=== PATIENT | male | born 1935 | race Caucasian/White ===

== ENCOUNTER 2021-11-01 19:17 | Emergency (ER) | payer OTHER ==
[2021-11-01] MEDS ORDERED: EPINEPHrine 1 MG/10 ML SYR IV ONE (19:18)
[2021-11-01] MEDS ORDERED: D50W 25 GM/50 ML SYRINGE IV ONE (19:18)
[2021-11-01] MEDS ORDERED: NA CHLORIDE 0.9% 1,000 ML ONE ×3 (19:42→23:00)
[2021-11-01 19:54] LABS: Urine Blood 3+ (Negative); Urine Glucose Negative (Negative); Urine Protein 2+ (Negative); Urine Specific Gravity >=1.030 (1.005-1.030); Urine pH 5.5 (5.0-7.0)
[2021-11-01] MEDS ORDERED: RSI MEDICATION KIT IV ONE (20:04)
[2021-11-01] MEDS ORDERED: WATER FOR INJ,STERILE 10 ML ONE (20:10)
[2021-11-01] MEDS ORDERED: VECURONIUM 10 MG/VIAL IV ONE (20:10)
[2021-11-01] MEDS ORDERED: MIDAZOLAM HCL 2 MG/2 ML INJ ONE (20:14)
[2021-11-01 20:19] LABS: Absolute Lymphocytes (CBC) 1.7 K/uL (0.7-4.9); Hematocrit 50.9 % (39.6-49.0); Lymphocytes % 10.9 % (15.3-44.8); MCV 87.4 fL (80-100); MPV 7.8 fL (7.6-11.3); RBC Red Blood Cell Count 5.83 M/uL (4.33-5.43)
[2021-11-01] MEDS ORDERED: NOREPINEPHRINE BITARTRATE/D5W 4 MG/250 ML BAG IV ONE (20:22)
[2021-11-01 20:34] LABS: Urine Bacteria <20 /HPF (<20); Urine Mucus 1+ /HPF (None Seen); Urine RBC <5 /HPF (None Seen)
[2021-11-01 20:38] LABS: Potassium 4.6 mmol/L (3.5-5.1)
[2021-11-01 20:47] LABS: NT PRO-BNP 8455 pg/mL (<450)
[2021-11-01 20:48] LABS: Creatine Phosphokinase 6422 U/L (39-308); Troponin High Sensitivity 1900.7 pg/mL (<58.9)
--- NOTE | 2021-11-01 21:06 | RAD REPORT ---
EXAM DESCRIPTION: RAD - Chest Single View - 11/01/2021 8:52 pm CLINICAL HISTORY: AMS Chest pain. COMPARISON: No comparisons FINDINGS: Portable technique limits examination quality. Tip of the endotracheal tube is at the level of the clavicular heads. Enteric tube descends into the stomach. Deming rounded masslike lesion is seen with right lower lung.Cardiac size is normal.
--- NOTE | 2021-11-01 21:07 | RAD REPORT ---
EXAM DESCRIPTION: US - Extremity Venous Uni Ltd - 11/01/2021 9:01 pm CLINICAL HISTORY: Pain Arm swelling and edema. COMPARISON: No comparisons FINDINGS: Left upper extremity venous system was interrogated with Doppler technique. Echogenic mate rial seen in the left brachial and basilic veins compatible with deep VT. IMPRESSION: Positive for left upper extremity DVT.
--- NOTE | 2021-11-01 21:08 | RAD REPORT ---
EXAM DESCRIPTION: RAD - Humerus Left - 11/01/2021 8:52 pm CLINICAL HISTORY: Pain COMPARISON: No comparisons FINDINGS: Mild AC joint and glenohumeral joint arthritic changes are present. No acute fracture or d islocation is seen.
--- NOTE | 2021-11-01 21:08 | RAD REPORT ---
EXAM DESCRIPTION: RAD - Shoulder Left 2 View - 11/01/2021 8:52 pm CLINICAL HISTORY: Pain COMPARISON: No comparisons FINDINGS: Mild AC joint and glenohumeral joint arthritic changes are present. No fracture or disloca tion seen. Incidentally noted is endotracheal intubation and enteric tube.
--- NOTE | 2021-11-01 21:57 | RAD REPORT ---
EXAM DESCRIPTION: CT - Head C Spine Cap Wo Con - 11/01/2021 9:37 pm CLINICAL HISTORY: Trauma, head and neck injury. Chest, abdomen and pelvis pain. AMS COMPARISON: No comparisons TECHNIQUE: CT head without contrast. CT cervical spine without contrast with coronal and sagittal reformatted images. CT chest, abdomen and pelvis without contrast with coronal and sagittal reformatted images of the [facility] ne. All CT scans are performed using dose optimization technique as appropriate and may include automated exposure control or mA/KV adjustment according to patient size. FINDINGS: CT HEAD WITHOUT CONTRAST: No intracranial hemorrhage, hydrocephalus or extra-axial fluid collection. Moderate generalized brain atrophy is present with moderate periventricular and deep white matter chronic microvascular ischemi c changes. No areas of brain edema or midline shift. The paranasal sinuses and mastoids are clear. The calvarium is intact. CT CERVICAL SPINE WITHOUT CONTRAST: No fracture or subluxation. Mild lower cervical degenerative changes. The prevertebral soft tissues a re normal in thickness.ETT and enteric tube noted. CT CHEST, ABDOMEN, PELVIS WITHOUT CONTRAST: NOTE: Lack of contrast is a significant limitation in the assessment of trauma related findings. Spec ifically, solid organ, vascular and bowel evaluation is significantly limited. There is significant soft tissue material filling the right lower tracheobronchial tree with expansio n tracheobronchial tree present. A similar appearance is present but less severe in the left lower lo be tracheobronchial tree.No pneumothorax or pericardial/pleural fluid. Enteric tube tip is in the sto mach. No evidence of intra-abdominal visceral injury, free fluid or free air is seen within the above detai led limitations. Linear density is seen in the left lobe liver which may represent pneumobilia. Sigmoid diverticulosis coli is present without diverticulitis. No fractures. IMPRESSION: Significant soft tissue material is seen expanding and filling both lower lobe of the tr acheobronchial tree, greater on the right. 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 No acute trauma related abnormality seen.
[2021-11-01 22:21] LABS: Blood O2 Saturation 99.3 % (92-98.5)
[2021-11-01 22:22] LABS: Blood Gas Oxyhemoglobin 97.9 % (94-97)
[2021-11-01 22:24] LABS: Arterial Blood Carboxyhemoglob 0.4 % (0-1.5)
[2021-11-01 23:38] LABS: Arterial Blood Carboxyhemoglob 0.8 % (0-1.5); Blood Gas Oxyhemoglobin 89.5 % (94-97)
[2021-11-02 00:15] LABS: SARS-CoV-2 Antigen Rapid Res Negative (Negative)
[2021-11-02] MEDS ORDERED: NA CHLORIDE 0.9% 1,000 ML ONE (01:04)
[2021-11-02] MEDS ORDERED: ENOXAPARIN 80 MG/0.8 ML SQ ONE (02:35)
--- NOTE | 2021-11-02 03:13 | ER ---
Nurse's Notes [facility] Name: Mariano Oliva Age: 86 yrs Sex: Male : 1935 Arrival Date: 11/01/2021 Time: 19:31 Bed 3 Private MD: Diagnosis: Weakness;Cardiac arrest, cause unspecified;Rhabdomyolysis Presentation: 11/01 19:42 Chief complaint: EMS states: Last seen well on Saturday. Pt's neighbor and family friend fabiano found him today with his left arm stuck between the bed frame and the bed. Pt with notable deep pressure injuries under the left arm and on the backside of the arm. Pt responds to verbal stimulation but at this time is non verbal. Pt placed on a non rebreather mask for O2 in the low 80's and transported to the hospital. Coronavirus screen: Vaccine status: Patient reports being unvaccinated. Ebola Screen: No symptoms or risks identified at this time. Initial Sepsis Screen: Does the patient meet any 2 criteria?. Onset of symptoms was November 01, 2021. 19:42 Method Of Arrival: EMS [facility] 19:42 Acuity: ROMIE 3 [facility] 20:14 Care prior to arrival: None. Compressions began at 19:48. 3 11/02 01:15 Note cori zhangd temp 99.1. kl 01:17 Acuity: ROMIE 2 kl 02:30 Note pt awake able to answer yes and no questions tracks with eyes. kl 04:01 Risk Assessment: Do you want to hurt yourself or someone else? Unable to obtain. kl 04:01 Initial Sepsis Screen: Does the patient have a suspected source of infection? No. kl Patient's initial sepsis screen is negative. Triage Assessment: 11/01 19:42 General: Appears ill, Behavior is unresponsive. Pain: Unable to use pain scale. Patient kd3 is unresponsive. Historical: - PMHx: 11/02 04:01 Chronic obstructive lung disease; kl - Immunization history:: Adult Immunizations unknown. - Social history:: Smoking status: unknown. - Unable to obtain history due to: unresponsive. Screenin/27 19:47 Abuse screen: Denies threats or abuse. Denies injuries from another. Nutritional kd3 screening: No deficits noted. Tuberculosis screening: No symptoms or risk factors identified. Fall Risk Mental Status-. Assessment: 19:48 CPR assessment: unresponsive, agonal respirations. kd3 19:48 Cardiac rhythm is asystole. kd3 20:24 Cardiovascular: Rhythm is sinus tachycardia. kd3 21:00 Neuro: [place] Agitation-Sedation Scale (RASS): -4 Deep sedation Level of kl Consciousness is unresponsive. Respiratory:. Musculoskeletal: Capillary refill is sluggish, in left fingers. Swelling present in left arm open wound no active bleeding. Injury Description: pressure injury to left upper extremity. Vital Signs: 19:42 BP 120 / 65; Pulse 110; Resp 31; Pulse Ox 92% on CPAP; kd3 19:49 Temp 97.1(C); Weight 65.77 kg; kd3 20:02 BP 81 / 64; Pulse 106; Temp 99.1(C); kl 20:23 BP 62 / 74; Pulse 110; kl 20:30 BP 61 / 35; Pulse 93; kl 20:35 BP 74 / 55 (auto/); Pulse 93; kl 20:45 BP 131 / 62; kl 21:02 BP 133 / 74; Pulse 122; Pulse Ox 100% on ETT vent; kl 21:10 BP 99 / 71; Pulse 104; Resp 18; Temp 98.6(C); Pulse Ox 100% on ETT vent; kl 21:30 BP 102 / 58; Pulse 98; Resp 20; Temp 95.6(C); Pulse Ox 96% on ETT vent; kl 22:00 BP 95 / 48; Pulse 89; Resp 20; Pulse Ox 96% on ETT vent; kl 23:00 BP 96 / 65; Pulse 84; Resp 20; Temp 95.2(C); Pulse Ox 95% on ETT vent; kl 23:15 BP 95 / 54; Pulse 97; Resp 20; Temp 96(C); Pulse Ox 95% ; kl 11/02 00:01 BP 91 / 63; Pulse 20; Resp 20 A; Temp 97.7; Pulse Ox 96% on ETT vent; kl 00:30 BP 98 / 64; Pulse 95 MON; Resp 20 A; Temp 98.1(C); Pulse Ox 97% on ETT vent; kl 01:00 BP 90 / 61; Pulse 92; Resp 20 A; Temp 98.9(C); Pulse Ox 93% on ETT vent; kl 01:30 BP 97 / 65; Pulse 99; Pulse Ox 93% ; kl 02:30 BP 102 / 64; Pulse 95; Resp 20; Pulse Ox 94% ; kl 03:30 BP 110 / 65; Pulse 84; Resp 20; Temp 99.3(C); Pulse Ox 94% on ETT vent; kl 04:30 BP 113 / 82; Pulse 80; Resp 20; Temp 98.4(C); Pulse Ox 92% on ETT vent; kl 05:52 BP 112 / 63; Pulse 88; Resp 20; Temp 98.8(C); Pulse Ox 98% on 80% FiO2 ETT vent; kl ED Course: 11/01 19:31 Patient arrived in ED. kd3 19:33 Kali El MD is Attending Physician. kdr 19:42 Beronica Parra, EMELIA is Primary Nurse. kd3 19:42 Arm band placed on right ankle. kd3 19:45 Uriostegui cath inserted, using sterile technique, 16 Fr., by mt, balloon inflated, to kd3 gravity drainage, urine specimen collected. 19:46 Triage completed. kd3 19:48 Patient has correct armband on for positive identification. kd3 19:52 Inserted saline lock: 20 gauge in right upper arm, using aseptic technique. kd3 19:52 Accessed peripheral vein via ultrasound, utilizing dynamic ultrasound technique bb Powerglide midline 20g 10 cm to right upper arm using hospital protocol has good blood return and flushes easily, pt tolerated well. 19:55 Initial lab(s) drawn, by mt, sent to lab. First set of blood cultures drawn by mt. bb 19:59 Intubation: 7.0 Fr. ETT Successful on second attempt. Placement verified by CXR, CO2 kd3 detector w/ + color change, auscultating bilateral breath sounds, Ventilated with ventilator. 20:12 Urine Microscopic Only Sent. kd3 20:12 Urine Culture Sent. kd3 20:12 NGT: inserted 12 Fr. via left nare. to intermittent suction. Returned gastric contents. kd3 20:48 Notified ED physician of a critical lab result(s). troponin of 1900.7, CPK 6422, bb Lactate 2.5. Dr El notified. 20:53 XRAY Chest (1 view) In Process Unspecified. EDMS 20:54 Shoulder Left (2 View) XRAY In Process Unspecified. EDMS 20:54 Humerus Left XRAY In Process Unspecified. EDMS 21:05 UPPER EXTREMITY VENOUS UNILATE In Process Unspecified. EDMS 21:39 CT Traumagram (Head C Spine CAP wo con) In Process Unspecified. EDMS 21:40 cori bennett applied . kl 23:15 initiated a transfer with the [facility]. mw2 23:24 faxed over patient information to [facility]. 2 11/02 00:12 Called [facility] to see if they received our faxed. They stated "we did". Waiting mw2 for the ER doctor to call back. 01:45 [facility] declined the patient. mw2 03:02 initiated a transfer with Janell Burrows from [facility]. mw2 03:38 [facility] denied transfer due to capacity, immediately initiated transfer to [facility]. 04:00 No provider procedures requiring assistance completed. Patient transferred, IV remains kl in place. 04:51 Pt accepted for transfer to [facility] by Justus Shane per Janell Burrows. Administered Medications: 11/01 22:56 Discontinued: Levophed (norepinephrine) 0.1 mcg/kg/min IV at calculated rate See Administration Instructions; (Standard concentration 4 mg / 250 mL D5W); Recommended max rate 3 mcg/kg/min; Titrate 0.05 mcg/kg/min as often as every 5 minutes to achieve goal (see titration policy); Goal parameter MAP greater than 65 mmHg. 20:10 Drug: VecuroNIUM 10 mg Route: IVP; Site: right upper arm; 20:12 Drug: NS 0.9% (30 ml/kg) 30 ml/kg Route: IV; Rate: bolus; Site: right upper arm; kd3 20:23 Drug: Levophed (norepinephrine) 0.1 mcg/kg/min Route: IV; Rate: calculated rate; Site: right upper arm; 21:02 Follow up: BP 133 / 74; Pulse 122 bpm; Pulse Ox 100% FiO2 Vent 11/02 02:30 Drug: Lovenox (enoxaparin) 1 mg/kg Route: Sub-Q; Site: left upper arm; kl 05:40 Drug: Midazolam 2 mg Route: IVP; Site: left femoral; 05:52 Follow up: BP 112 / 63; Pulse 88 bpm; Resp 20 bpm; Temp 98.8 Catheter; Pulse Ox 98% kl FiO2 80% Vent 05:53 Follow up: Response: No adverse reaction; Marked relief of symptoms Medication: 04:02 VIS not applicable for this client. Ventilator: 11/01 20:20 Fi02: 100%; Rate: 20min; T.V.: 460ml; Peep: 5cm; ET tube: 7.0 fr (Oral); kd3 Outcome: 19:48 Outcome Resuscitation successful kd3 11/02 03:12 ER care complete, transfer ordered by . kdr 04:00 critical kl 05:53 Transferred by ground EMS to [facility], Transfer form completed. X-rays sent w/ patient. Note: report to Daysi KAPOOR 05:54 Patient left the ED. Signatures: Dispatcher [employer] Teri Larry, RN Kali Bhatia MD MD kdr Ballard, Brenda RN Juan Christiansen 2 Lilliana Josue Kyli, RN RN kd3 Corrections: (The following items were deleted from the chart) 11/01 21:03 21:03 In radiology for Extremity Venous Uni Ltd+US.RAD.BRZ. [facility] 11/02 00:43 00:12 Called [facility] to see if they received our faxed. They stated they did mw2 mw2
--- NOTE | 2021-11-02 03:13 | EDPHYS ---
Physician Documentation [facility] Name: Mariano Oliva Age: 86 yrs Sex: Male : 1935 Arrival Date: 11/01/2021 Time: 19:31 Bed 3 Private MD: ED Physician Kali El HPI: 11/02 06:40 This 86 yrs old Male presents to ER via EMS with complaints of AMS. kdr 06:40 Patient was last seen well about 2 days ago. At that time a friend who interacts with kdr him from time to time some food for him which apparently he did not eat. Friend then attempted to contact the patient today but was unsuccessful until she traveled to his residence and worked her way inside. In the process of gaining entrance to the house she had looked into her bedroom window and noted that the patient was laying on the floor. When she tapped on the window the patient apparently attempted to move his legs and so she assumed he was not at that time. She subsequently gained entrance to the house and found the patient on the floor next to his bed. His left arm was wedged up between the mattress and the frame. Is unknown how long the patient been there and he was not speaking at the time. EMS had arrived shortly after that and patient was packaged for transport to the emergency department without further intervention. On arrival of the ED, patient was poorly responsive. He was very weak. He was not able to speak. He appeared very dehydrated and cachectic. He reacted poorly to noxious stimuli. His oxygen saturation was in the mid to upper 80s. His heart rate was mildly tachycardic in the 120s. His blood pressure was approximately 90 systolic. Patient was initially placed on BiPAP and the laboratory intervention was initiated. Approximately 20 to 30 minutes into the patient's stay, he had a cardiac arrest. Standard ACLS was initiated. Patient was given 2 rounds of epinephrine and 1 amp of bicarb. He subsequently regained spontaneous circulation. At that time he was intubated. Further a right femoral triple lumen access was established. Patient continued to improve once intubated and sedated.. Onset: The symptoms/episode began/occurred at an unknown time. Severity of symptoms: At their worst the symptoms were incapacitating in the emergency department the symptoms are unchanged. It is unknown whether or not the patient has had similar symptoms in the past. It is unknown whether or not the patient has recently seen a physician. Historical: - PMHx: 04:01 Chronic obstructive lung disease; kl - Immunization history:: Adult Immunizations unknown. - Social history:: Smoking status: unknown. - Unable to obtain history due to: unresponsive. ROS: 06:40 Constitutional: Unable to obtain secondary to the patient's altered mental status kdr 06:40 Unable to obtain ROS due to altered mental status, comatose state, obtunded state. Exam: 06:40 Constitutional: This is a well developed, poorly nourished patient who is altered kdr Head/Face: Normocephalic, atraumatic. Eyes: Pupils equal round and reactive to light, extra-ocular motions intact. Lids and lashes normal. Conjunctiva and sclera are non-icteric and not injected. Cornea within normal limits. Periorbital areas with no swelling, redness, or edema. Neck: Trachea midline, no thyromegaly or masses palpated, and no cervical lymphadenopathy. Supple, full range of motion without nuchal rigidity, or vertebral point tenderness. No Meningismus. Chest/axilla: Normal chest wall appearance and motion. Nontender with no deformity. No lesions are appreciated. 06:40 Cardiovascular: Rate: tachycardic, Rhythm: regular, Pulses: no pulse deficits are appreciated. 06:40 Neuro: Patient is unresponsive. 07:03 ECG was reviewed by the Attending Physician. kdr Vital Signs: 11/01 19:42 BP 120 / 65; Pulse 110; Resp 31; Pulse Ox 92% on CPAP; kd3 19:49 Temp 97.1(C); Weight 65.77 kg; kd3 20:02 BP 81 / 64; Pulse 106; Temp 99.1(C); kl 20:23 BP 62 / 74; Pulse 110; kl 20:30 BP 61 / 35; Pulse 93; kl 20:35 BP 74 / 55 (auto/); Pulse 93; kl 20:45 BP 131 / 62; kl 21:02 BP 133 / 74; Pulse 122; Pulse Ox 100% on ETT vent; kl 21:10 BP 99 / 71; Pulse 104; Resp 18; Temp 98.6(C); Pulse Ox 100% on ETT vent; kl 21:30 BP 102 / 58; Pulse 98; Resp 20; Temp 95.6(C); Pulse Ox 96% on ETT vent; kl 22:00 BP 95 / 48; Pulse 89; Resp 20; Pulse Ox 96% on ETT vent; kl 23:00 BP 96 / 65; Pulse 84; Resp 20; Temp 95.2(C); Pulse Ox 95% on ETT vent; kl 23:15 BP 95 / 54; Pulse 97; Resp 20; Temp 96(C); Pulse Ox 95% ; kl 11/02 00:01 BP 91 / 63; Pulse 20; Resp 20 A; Temp 97.7; Pulse Ox 96% on ETT vent; kl 00:30 BP 98 / 64; Pulse 95 MON; Resp 20 A; Temp 98.1(C); Pulse Ox 97% on ETT vent; kl 01:00 BP 90 / 61; Pulse 92; Resp 20 A; Temp 98.9(C); Pulse Ox 93% on ETT vent; kl 01:30 BP 97 / 65; Pulse 99; Pulse Ox 93% ; kl 02:30 BP 102 / 64; Pulse 95; Resp 20; Pulse Ox 94% ; kl 03:30 BP 110 / 65; Pulse 84; Resp 20; Temp 99.3(C); Pulse Ox 94% on ETT vent; kl 04:30 BP 113 / 82; Pulse 80; Resp 20; Temp 98.4(C); Pulse Ox 92% on ETT vent; kl 05:52 BP 112 / 63; Pulse 88; Resp 20; Temp 98.8(C); Pulse Ox 98% on 80% FiO2 ETT vent; kl Ventilator: 11/01 20:20 Fi02: 100%; Rate: 20min; T.V.: 460ml; Peep: 5cm; ET tube: 7.0 fr (Oral); kd3 Procedures: 20:51 Intubation: Ventilated with 100% NRB prior to procedure. O2 saturation prior to cp procedure was 70 %. Intubated orally using # 3 Lorenzo blade with 7.5 mm ETT. Successful on second attempt. Ventilated with Ambu bag. Cricoid pressure applied during procedure. Tube secured measured 23 cm at lip. Placement verified by CXR, CO2 detector with (+) color change, auscultating bilateral breath sounds, Patient tolerated well. Central Line: the site was prepped with Betadine, a triple lumen catheter was inserted, in the right femoral vein, in 1 attempts. placement was verified, by blood return, the site was dressed with Tegaderm, the patient tolerated the procedure, well. MDM: 11/02 03:12 Patient medically screened. kdr 06:40 Data reviewed: vital signs, nurses notes, lab test result(s), radiologic studies. kdr Counseling: I had a detailed discussion with the patient and/or guardian regarding: the historical points, exam findings, and any diagnostic results supporting the discharge/admit diagnosis, lab results, radiology results, the need to transfer to another facility. ED course: Long after the patient's arrival to the ED, he had a spontaneous cardiac arrest. Standard ACLS was implemented and after several rounds of epinephrine and bicarb, the patient recovered. He continued to be unresponsive and did not require any sedation. The patient slowly improved over time. Was placed on the bear hugger during her short period where he was discovered to be hypothermic. He improved as temperature improved and he was taken off the Ra hugger. He was also started on Levophed early on in the. Post intubation to support his pressure. At that time his systolic pressure dropped into the 70s. Patient was given a 30 mL/kg fluid bolus and responded well to that of normal. Time he no longer required the Levophed drip. Patient was subsequently transferred to [facility] to the intensive care unit. He was transferred by ground. Ground was chosen due to the risk of air travel and the condition of the patient. Further he has been stable in the emergency department for several hours. And it was felt that the benefits of a time interval transport did not warrant the risk of the assets and human lives involved to get the patient to the destination via that means.. 11/01 19:35 Order name: Basic Metabolic Panel; Complete Time: 21:16 kdr 11/01 19:35 Order name: CBC with Diff; Complete Time: 20:22 kdr 11/01 19:35 Order name: Troponin HS; Complete Time: 21:16 kdr 11/01 19:35 Order name: Lactate; Complete Time: 21:16 kdr 11/01 19:35 Order name: ABG; Complete Time: 22:52 kdr 11/01 19:37 Order name: CPK; Complete Time: 21:16 kdr 11/01 19:37 Order name: PROBNP; Complete Time: 21:16 [facility] 11/01 19:47 Order name: Urine Culture 3 11/01 19:47 Order name: Urine Microscopic Only; Complete Time: 21:16 3 11/01 19:54 Order name: Urine Dipstick-Ancillary; Complete Time: 20:22 [facility] 11/01 22:55 Order name: ABG; Complete Time: 00:59 [facility] 11/01 23:12 Order name: SARS RAPID mw2 11/01 23:34 Order name: Lactate Sepsis 2 HR Follow-up; Complete Time: 00:59 [facility] 11/01 23:37 Order name: SARS-COV-2 Antigen Rapid; Complete Time: 00:59 EDAR 11/01 19:35 Order name: XRAY Chest (1 view); Complete Time: 21:16 [facility] 11/01 19:35 Order name: EKG; Complete Time: 19:37 [facility] 11/01 19:35 Order name: Cardiac monitoring; Complete Time: 19:49 [facility] 11/01 19:35 Order name: EKG - Nurse/Tech; Complete Time: 19:49 [facility] 11/01 19:35 Order name: IV Saline Lock; Complete Time: 20:13 [facility] 11/01 19:35 Order name: Labs collected and sent; Complete Time: 01:13 [facility] 11/01 19:35 Order name: CT Traumagram (Head C Spine CAP wo con); Complete Time: 22:52 [facility] 11/01 19:37 Order name: Shoulder Left (2 View) XRAY; Complete Time: 21:16 [facility] 11/01 19:37 Order name: Humerus Left XRAY; Complete Time: 21:16 [facility] 11/01 21:05 Order name: UPPER EXTREMITY VENOUS UNILATE; Complete Time: 21:16 [facility] 11/01 19:35 Order name: O2 Per Protocol; Complete Time: 19:49 [facility] 11/01 19:35 Order name: O2 Sat Monitoring; Complete Time: 19:49 [facility] 11/01 19:47 Order name: Urine Dipstick-Ancillary (obtain specimen); Complete Time: 20:12 kd3 EC:03 Rate is 111 beats/min. Rhythm is regular, Sinus tachycardia with No ectopy. QRS [place] is kdr Normal. [place] interval is normal. QRS interval is normal. QT interval is normal. Clinical impression: NSR w/ Non-specific ST/T Changes and Sinus tachycardia. Administered Medications: 11/01 22:56 Discontinued: Levophed (norepinephrine) 0.1 mcg/kg/min IV at calculated rate See Administration Instructions; (Standard concentration 4 mg / 250 mL D5W); Recommended max rate 3 mcg/kg/min; Titrate 0.05 mcg/kg/min as often as every 5 minutes to achieve goal (see titration policy); Goal parameter MAP greater than 65 mmHg. 20:10 Drug: VecuroNIUM 10 mg Route: IVP; Site: right upper arm; kl 20:12 Drug: NS 0.9% (30 ml/kg) 30 ml/kg Route: IV; Rate: bolus; Site: right upper arm; kd3 20:23 Drug: Levophed (norepinephrine) 0.1 mcg/kg/min Route: IV; Rate: calculated rate; Site: right upper arm; 21:02 Follow up: BP 133 / 74; Pulse 122 bpm; Pulse Ox 100% FiO2 Vent 11/02 02:30 Drug: Lovenox (enoxaparin) 1 mg/kg Route: Sub-Q; Site: left upper arm; kl 05:40 Drug: Midazolam 2 mg Route: IVP; Site: left femoral; kl 05:52 Follow up: BP 112 / 63; Pulse 88 bpm; Resp 20 bpm; Temp 98.8 Catheter; Pulse Ox 98% kl FiO2 80% Vent 05:53 Follow up: Response: No adverse reaction; Marked relief of symptoms kl Disposition: 02:47 Co-signature as Attending Physician, Kali El MD I agree with the assessment and kdr plan of care. Disposition Summary: 11/02/21 03:12 Transfer Ordered Transfer Location: [facility] kdr Reason: Higher level of care kdr Condition: Serious kdr Problem: new kdr Symptoms: have improved kdr Accepting Physician: Desmond(11/02/21 05:54) kl Diagnosis - Weakness kdr - Cardiac arrest, cause unspecified kdr - Rhabdomyolysis kdr Forms: - Medication Reconciliation Form kdr - SBAR form kdr Signatures: Dispatcher [employer] Teri Larry RN RN kl Rittger, Kevin, MD MD kdr Dale Irvin PA PA cp Doucette, Kyli, RN RN kd3 Azeb Gupta PA PA sb3 Corrections: (The following items were deleted from the chart) 11/01 21:03 19:38 Extremity Venous Uni Ltd+[email or web address].RAD.BRZ ordered. EDMS EDMS 11/02 05:54 03:12 Desmond richard
[2021-11-02 08:39] VITALS: BP 112/63; TEMP 98.8; O2SAT 98
--- NOTE | 2021-11-02 13:05 | EKG ---
Test Date: 2021-11-01 Test Time: 19:30:10 [facility] Specialist: TACOS MEASUREMENT RESULTS: Intervals: Rate: 111 [place]: 120 QRSD: 86 QT: 400 QTc: 544 [place]: P: 80 [place]: 120 QRS: 66 T: 49 INTERPRETIVE STATEMENTS: Sinus tachycardia Nonspecific ST abnormality Abnormal ECG No previous ECG available for comparison Electronically Signed On 11-02-21 13:03:54 CDT by William Bach
== END 2021-11-02 05:54 | disposition short-term general hospital (02) ==
LOC: ER 19:17
PROC: 06HM33Z Insertion of Infusion Device into Right Femoral Vein, Percutaneous Approach (ICD-10-PCS; principal; 2021-11-02)
DX: I46.9 Cardiac arrest, cause unspecified (principal); M62.82 Rhabdomyolysis; J44.9 Chronic obstructive pulmonary disease, unspecified; Z20.822 Contact with and (suspected) exposure to COVID-19
CPT/HCPCS: 93005; 87088; 85025; 87086; 80048; 36415; 82550; 83605 ×2; 84484; 83880; 70450; 71250; 72125; 71045; 73060; 73030; 93971; 82805 ×2; 31500; 51702; 96372; 92950; 99291; 99292; 87811; 36556; J2250; J0171; J7030 ×4; 81003; 81015